=== PATIENT | female | born 1940 | race Caucasian/White ===

== ENCOUNTER 2016-07-24 07:21 | Day surgery (SDC) ==
[2016-02-18 22:43] VITALS: BMI 27.3
[2016-07-24] MEDS ORDERED: LIDOCAINE 1% 20 ML MDV ONE (07:55)
[2016-07-24] MEDS ORDERED: LIDOCAINE 1% 20 ML MDV ID ONE (07:55)
[2016-07-24] MEDS ORDERED: DIPRIVAN 20 ML VIAL IVP ONE (09:15)
[2016-07-24] MEDS ORDERED: VERSED ONE (09:15)
[2016-07-24 10:44] VITALS: BP 141/71; TEMP 98.5
--- NOTE | 2016-07-24 14:55 | OP ---
INDICATIONS FOR PROCEDURE: 75-year-old female presents for colonoscopy examination. She was hospitalized MEDICATIONS: SEE ANESTHESIA NOTES. PROCEDURE: COLONOSCOPY. REPORT: The risks, benefits, alternatives and limitations were discussed in detail with the patient. Informed consent was obtained. After adequate sedation was achieved, a digital rectal exam revealed good tone, no masses. The colonoscope was introduced into the rectum and advanced under direct visual guidance to the cecum. The cecum was identified by the appendiceal orifice and IC valve. The patient tolerated the procedure well with stable vital signs and pulse oximetry throughout. IMPRESSION: 1. TWO (2) SMALL CLEAN BASED ULCERATIONS ON A LIPOMATOUS IC VALVE 2. OTHERWISE NORMAL COLONOSCOPY EXAM 3. NOTHING TO SUGGEST INFLAMMATORY BOWEL DISEASE 4. I SUSPECT THE SMALL ULCERS ON THE IC VALVE OR EVEN RELATED TO NSAIDS OR THEY ARE TENSION ULCERS FROM THE LIPOMATOUS IC VALVE ITSELF OF WHICH IS NOT VERY CLINICALLY SIGNIFICANT. RECOMMENDATIONS: 1. Await pathology results. 2. Advised her to avoid nonsteroidal agents. 3. Since she is asymptomatic at this time, it does not appear that she had inflammatory bowel disease. I suspect the episode she had was either acute infectious colitis or ischemic colitis that has resolved. 4. Will see her back in the office as needed. 5. Future colonoscopies on an as needed basis. CC: DR. IVET JOHNSON
== END 2016-07-24 11:00 | disposition home or self-care (01) ==
LOC: SURG 07:21
PROVIDERS: ATTEND Internal Medicine Gastroenterology
DX: K52.9 Noninfective gastroenteritis and colitis, unspecified (principal); D12.0 Benign neoplasm of cecum; K63.3 Ulcer of intestine